=== PATIENT | male | born 1980 | race Caucasian/White ===

== ENCOUNTER 2025-10-06 11:02 | Emergency (ER) | payer BC ==
[2025-10-06] MEDS ORDERED: Acetaminophen 500 MG TAB ONE (11:30)
[2025-10-06] MEDS ORDERED: Ondansetron PF 4 MG/2 ML Vial ONE (11:31)
[2025-10-06] MEDS ORDERED: ANTIVENIN,CROTALIDAE (ANAVIP) 1 EACH VIAL ONE (11:31)
[2025-10-06 11:33] LABS: #Basophils 0.1 thou/uL (0.0-0.2); #Eosinophils 0.1 thou/uL (0.0-0.7); #Lymphocytes 3.9 thou/uL (1.20-3.40); #Monocytes 0.6 thou/uL (0.11-0.59); #Neutrophils 6.9 thou/uL (1.40-6.50); %Basophils 0.8 % (0.0-1.0); %Eosinophils 0.6 % (0.0-10.0); %Lymphocytes 33.8 % (21.0-51.0); %Monocytes 5.5 % (0.0-10.0); %Neutrophils 59.3 % (42.0-75.0); Hematocrit 50.6 % (42.0-52.0); Hemoglobin 16.6 g/dL (14.0-18.0); Mean Corpuscular Hemoglobin 29.3 pg (27.0-31.0); Mean Corpuscular Volume 89.5 fl (78.0-98.0); Platelet Count 446 10x3/uL (130-400); Red Blood Cell (RBC) Count 5.65 mill/uL (4.70-6.10); White Blood Cell (WBC) Count 11.7 10x3/uL (4.8-10.8)
[2025-10-06 11:40] LABS: INR-International Normal Ratio 1.0; Prothrombin Time 13.1 sec (12.0-14.7)
[2025-10-06 11:41] LABS: PTT 31.1 sec (22.9-36.1)
[2025-10-06 11:50] LABS: ALT (SGPT) 30 U/L (Less than 45); AST (SGOT) 23 U/L (11-34); Albumin 4.2 g/dL (3.1-4.5); Alkaline Phosphatase 80 U/L (40-110); Anion Gap 18 mmol/L (10-20); BUN (Urea Nitrogen) 12 mg/dL (8.9-20.6); Bilirubin, Total 0.5 mg/dL (0.3-1.2); Calc. Creatinine Clearance 0 mL/min (70-130); Calcium 8.9 mg/dL (7.8-10.44); Carbon Dioxide 19 mmol/L (22-29); Chloride 108 mmol/L (98-107); Globulin 2.9 g/dL (2.4-3.5); Glucose 118 mg/dL (70-105); Potassium 3.6 mmol/L (3.5-5.1); Sodium 141 mmol/L (136-145)
[2025-10-06] MEDS ORDERED: HYDROmorphone 0.5 MG/0.5 ML SYRINGE ONE (12:39)
[2025-10-06 18:21] LABS: Fibrinogen 381.0 mg/dL (253-463)
== END 2025-10-06 13:07 | disposition short-term general hospital (02) ==
LOC: MADERS 11:02
DX: T63.001A Toxic effect of unspecified snake venom, accidental (unintentional), initial encounter (principal); F17.210 Nicotine dependence, cigarettes, uncomplicated; Z23 Encounter for immunization
CPT/HCPCS: 80053; 85025; 85384; 85610; 85730; 90471; 90715; 96365; 96375; J0841; J1171; J2270; J2405; J7030